=== PATIENT | male | born 1985 | race Caucasian/White ===

== ENCOUNTER → 2018-11-20 16:04 | Outpatient (CLI) | payer BC, SELFPAY | PROVIDERS: PCP Internal Medicine; Visit Provider Internal Medicine | DX: R00.2 Palpitations (principal) | CPT/HCPCS: 93005 ==

== ENCOUNTER → 2019-10-08 14:45 | Outpatient (CLI) | payer BC, SELFPAY ==
--- NOTE | 2019-10-08 15:01 | XR_ITS ---
PROCEDURE: XR CHEST 2V CLINICAL HISTORY: CHEST PAIN, PALPATATIONS COMPARISON: No exams were available for comparison FINDINGS: The cardiomediastinal silhouette and pulmonary vascularity are within normal limits. The lungs are clear without infiltrates, suspicious nodules, or pleural effusions. Calcified granuloma right upper lobe IMPRESSION: No acute findings. Dictated by: Prince Luke MD 10/08/2019 15:31 Electronically signed by Prince Luke MD in [place] 10/08/2019 15:31
[2019-10-08 15:23] LABS: Troponin I < 0.02 ng/ml (0.00-0.06)
--- NOTE | 2019-10-08 15:34 | ECG_ITS ---
APPROVED REPORT Exam: Resting ECG HR:101 bpm ECG Measurements Heart Rate 101 AXES MA 136 P 61 QRSd 88 QRS 53 QT 324 T 33 QTc 420 <Conclusion> Sinus tachycardia Otherwise WNL Electronically signed by : Rocael Rodarte, 10/08/2019 17:04:13
== END ==
PROVIDERS: Visit Provider Internal Medicine
DX: R07.9 Chest pain, unspecified (principal); R00.2 Palpitations
CPT/HCPCS: 36415; 71046; 84484; 93005

== ENCOUNTER → 2021-02-13 12:30 | Outpatient (CLI) | payer BC, SELFPAY ==
--- NOTE | 2021-02-13 | CA_ITS ---
APPROVED REPORT Left Lower Extremity Venous Study for DVT. 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 The pain has progressively gotten worse with a vein bulging on the lateral aspect of calf. Risk Factors Hypertension Vein Imaging CFV (L): compressive, spontaneous, phasic, augmentation FEM (L): compressive, spontaneous, phasic, augmentation POP (L): compressive, spontaneous, phasic, augmentation PTV (L): Compressible GSV (L): compressive, spontaneous, phasic, augmentation SSV (L): Compressible Peroneals (L):Compressible GAS (L): Compressible Findings No evidence of DVT or superficial thrombophlebitis in the veins scanned of the left lower extremity. Conclusion No evidence of DVT or superficial thrombophlebitis in the veins scanned of the left lower extremity. Electronically signed by : Prince Luke MD 02/13/2021 17:52:40
== END ==
PROVIDERS: PCP Internal Medicine; Visit Provider Internal Medicine
DX: M79.605 Pain in left leg (principal); R60.0 Localized edema
CPT/HCPCS: 93971

== ENCOUNTER → 2022-07-16 06:25 | Outpatient (CLI) | payer BC, SELFPAY | PROVIDERS: PCP Family Medicine; Visit Provider Family Medicine | DX: J02.9 Acute pharyngitis, unspecified (principal) | CPT/HCPCS: 87070 ==

== ENCOUNTER 2022-08-01 09:35 | Emergency (ER) | payer BC, SELFPAY ==
--- NOTE | 2022-08-01 09:37 | EXP.UTC ---
Discharge Plan Disposition Patient Disposition: Home, Self-Care Condition: Good Prescriptions Prescriptions: New azithromycin [Zithromax] 250 mg tablet 250 mg PO UD DOSE PK Qty: 6 0RF Rx Instructions: Take two (2) tablets today, then one (1) tablet days #2 thru #5 benzonatate [benzonatate] 100 mg capsule 100 mg PO TIDP PRN (Reason: Cough) Qty: 30 0RF methylprednisolone 4 mg Tablets,Dose Pack 4 mg PO DIRECTED Qty: 21 0RF No Action lisinopril 20 mg tablet 20 mg PO DAILY trazodone 50 mg tablet 25 mg PO HS albuterol sulfate 90 mcg/actuation HFA aerosol inhaler inhalation epinephrine 0.3 mg/0.3 mL auto-injector 0.3 mg IM ONCE PRN Label Comments: INJECT 1 PEN IN THE MUSCLE ONE TIME DIRECTED doxycycline monohydrate [Monodox] 100 mg capsule 100 mg PO BID Qty: 20 0RF Referrals Follow up/Referrals: Rocael Rodarte MD [Primary Care Provider] - See instructions Activity Restrictions/Add. Instructions Additional Instructions/Restrictions: Drink plenty of fluids. Take tylenol or ibuprofen for pain or fever. Take the medications as directed. Follow up with your regular doctor. GO TO THE ER FOR ANY WORSENING SYMPTOMS Clinical Impressions Clinical Impression: Sinusitis, Bronchitis Instructions Patient Instructions: DI for Sinusitis Discharge ED Provider: Maynor Nicholson [facility] [place] General Stated complaint: fever, cough, congestion/runny nose Time Seen by Provider: 08/01/22 09:43 History of Present Illness Provider Complaint: He c/o sore throat, chills, sinus congestion, and runny nose for the past 2 days. He had similar symptoms around 3 weeks ago. He took doxycycline (prescribed by his pcp) and he did get better until 2 days ago. Related Data Home Medications Medication Instructions Recorded Confirmed albuterol sulfate 90 mcg/actuation g inhalation 07/16/22 07/16/22 aerosol inhaler epinephrine 0.3 mg/0.3 mL 0.3 mg IM ONCE PRN 07/16/22 07/16/22 injection, auto-injector lisinopril 20 mg tablet 20 mg PO DAILY HTN 07/16/22 07/16/22 trazodone 50 mg tablet 25 mg PO HS insomnia 07/16/22 07/16/22 Previous Rx's Medication Instructions Recorded doxycycline monohydrate 100 mg 100 mg PO BID #20 caps 07/16/22 capsule (Monodox) azithromycin 250 mg tablet 250 mg PO UD DOSE PK #6 tabs 08/01/22 (Zithromax) benzonatate 100 mg capsule 100 mg PO TIDP PRN Cough #30 caps 08/01/22 methylprednisolone 4 mg tablets in 4 mg PO DIRECTED #21 tabs 08/01/22 a dose pack Allergies Allergy/AdvReac Type Severity Reaction Status Date / Time No Known Allergies Allergy Verified 08/01/22 09:50 [facility] Medical History Allergies Hypertension Surgical History Wrist fracture Family History Mother Hypertension Father Hypertension Social History Smoking Status: Never smoker alcohol intake: current substance use type: denies use current occupational status: employed Travel in the last 8 weeks: None ROS Obtained: Yes All systems reviewed & no additional complaints except as documented Constitutional Constitutional: Reports chills and Reports fever(s) Eyes Eyes: Denies eye discharge ENT Ears, Nose, Mouth, and Throat: Reports as per HPI Cardiovascular Cardiovascular: Denies chest pain Respiratory Respiratory: Denies chest congestion and Reports cough Gastrointestinal Gastrointestingal: Reports nausea; Denies abdominal pain, constipation, cramping, diarrhea or vomiting Musculoskeletal Musculoskeletal: Denies arthralgias Integumentary/Breasts Skin/Breast: Denies rash Neurologic Neurologic: Denies paresthesias Physical Exam General General appearance: alert and in no apparent distress Head Head exam: atraumatic,
[2022-08-01 09:48] VITALS: BP 167/94; PULSE 119; RESP 16; TEMP 36.9; O2SAT 98; BMI 29.9
[2022-08-01 10:02] LABS: UTC Strep Screen (Rapid) Negative (Negative)
[2022-08-01 10:23] VITALS: BP 167/94; PULSE 119; RESP 16; TEMP 36.9
[2022-08-01 14:31] LABS: Adenovirus,PCR Not Detected (NotDetected); Bordetella Pertussis Not Detected (NotDetected); Chlamydophila Pneumoniae, PCR Not Detected (NotDetected); Coronavirus 19, PCR Not Detected (NotDetected); Coronavirus 229E Not Detected (NotDetected); Coronavirus NL63 Not Detected (NotDetected); Coronavirus OC43 Not Detected (NotDetected); Coronovirus HKU1,PCR Not Detected (NotDetected); Human Metapneumovirus Not Detected (NotDetected); Influenza A, PCR Not Detected (NotDetected); Influenza AH1, 2009 Not Detected (NotDetected); Influenza AH1, PCR Not Detected (NotDetected); Influenza AH3,PCR Not Detected (NotDetected); Influenza B, PCR Not Detected (NotDetected); Mycoplasma Pneumoniae, PCR Not Detected (NotDetected); Parainfluenza 1, PCR Not Detected (NotDetected); Parainfluenza 2, PCR Not Detected (NotDetected); Parainfluenza 3, PCR Not Detected (NotDetected); Parainfluenza 4, PCR Not Detected (NotDetected); Respiratory Syncytial Virus Not Detected (NotDetected); Rhinovirus/Enterovirus Not Detected (NotDetected)
== END 2022-08-01 10:24 | disposition home or self-care (01) ==
PROVIDERS: Emergency Provider Nurse Practitioner Family; PCP Internal Medicine
DX: J40 Bronchitis, not specified as acute or chronic (principal); J32.9 Chronic sinusitis, unspecified
CPT/HCPCS: 87581; 87632; 87798; 87880; 99212; C9803; G0463; U0003; U0005

== ENCOUNTER 2024-07-28 22:59 | Emergency (ER) | payer BC, SELFPAY ==
--- NOTE | 2024-07-28 22:59 | ECG_ITS ---
APPROVED REPORT Exam: Resting ECG HR:172 bpm ECG Measurements Heart Rate 172 AXES QRSd 88 QRS 80 QT 247 T -38 QTc 340 Conclusion ATRIAL FIBRILLATION WITH RAPID VENTRICULAR RESPONSE NONSPECIFIC ST & T-WAVE ABNORMALITY CRITICAL TEST RESULT Electronically signed by : ALAN TADEO, 07/29/2024 07:13:38
[2024-07-28 23:00] VITALS: BP 79/50; PULSE 171; RESP 19; TEMP 36.9; O2SAT 100; BMI 27.1
[2024-07-28 23:03] VITALS: PULSE 170
[2024-07-28 23:04] VITALS: BP 127/95; PULSE 175; RESP 21; O2SAT 99
--- NOTE | 2024-07-28 23:05 | XR_ITS ---
PROCEDURE INFORMATION: Exam: XR Chest Exam date and time: 07/28/2024 11:04 PM Age: 39 years old Clinical indication: Other: Chest tightness TECHNIQUE: Imaging protocol: Radiologic exam of the chest. Views: 1 view. Total images: 1 COMPARISON: CR XR CHEST 2V 10/08/2019 3:19 PM FINDINGS: Lungs: Calcified right upper lobe granuloma. No consolidation. No pulmonary vascular congestion or edema. Pleural spaces: Unremarkable. No pleural effusion. No pneumothorax. Heart/Mediastinum: Calcified hilar lymph nodes. No cardiomegaly. No mediastinal widening or hilar enlargement. Bones/joints: Unremarkable. IMPRESSION: No radiographically acute cardiopulmonary process.
[2024-07-28 23:13] LABS: Basophils # 0.2 K/mm3 (0-0.2); Basophils % 1.5 % (0.1-2.0); Eosinophils # 0.1 K/mm3 (0.0-0.4); Eosinophils % 1.1 % (0.1-12.0); Hematocrit 48.5 % (42.0-52.0); Hemoglobin 17.2 g/dL (14.1-18.0); Lymphocytes % 38.7 % (10-50); Mean Corpuscular HGB Conc 35.5 g/dL (31.8-35.4); Mean Corpuscular Volume 90.1 fl (80-94); Mean Platelet Volume 7.5 fl (7.4-10.4); Monocytes % 9.4 % (1.7-9.3); Neutrophils # 5.2 K/mm3 (1.8-7.8); Neutrophils % 49.3 % (37.0-80.0); Platelet Count 255 K/mm3 (142-424); Red Blood Count 5.38 M/mm3 (4.60-6.20); Red Cell Distribution Width 13.2 % (11.5-17.5); White Blood Count 10.5 K/mm3 (4.8-10.8)
[2024-07-28] MEDS: LACTATED RINGERS 1000ML 1,000 ML 999 ML IV (23:13)
[2024-07-28 23:33] LABS: Activated Partial Thrombo Time 27.8 seconds (22.8-30.6); Alanine Aminotransferase 34 U/L (12-78); Albumin Level 4.2 g/dl (3.5-5.0); Albumin/Globulin Ratio 1.8 (1.1-1.8); Alkaline Phosphatase 51 U/L (38-126); Anion Gap 10.5 mEq/L (5-15); Aspartate Amino Transferase 36 U/L (17-59); Bilirubin,Total 0.5 mg/dl (0.2-1.3); Blood Urea Nitrogen 20 mg/dl (9-20); Calcium 9.3 mg/dl (8.4-10.2); Carbon Dioxide 28 mmol/L (22.0-30.0); Chloride 104 mmol/L (98-107); Creatinine Clearance Estimated 124 mL/min (50-200); Estimated Glomerular Filt Rate 83 ml/min (>60); GFR (African American) 101 ML/MIN (>60); Globulin 2.4 g/dL (1.3-3.2); Glucose 112 mg/dl (74-100); INR 0.98 (0.9-1.1); Magnesium 1.8 mg/dl (1.6-2.3); Potassium 3.5 mmoL/L (3.5-5.1); Sodium 139 mmol/L (136-145); Total Protein,Serum 6.6 g/dl (6.3-8.2)
[2024-07-28 23:35] VITALS: BP 132/89; PULSE 161; RESP 20; O2SAT 98
[2024-07-28 23:45] VITALS: BP 148/89; PULSE 159; RESP 14; O2SAT 100
[2024-07-28 23:46] LABS: HIV (1&2) Antibody Rapid NONREACTIVE (NONREACTIVE)
[2024-07-28 23:47] LABS: Troponin I < 0.01 ng/ml (0.00-0.034)
[2024-07-28 23:50] LABS: Free T4 (Free Thyroxine) 1.12 ng/dl (0.78-2.19)
[2024-07-28 23:51] VITALS: BP 135/87; PULSE 151; RESP 14; O2SAT 100
[2024-07-29] VITALS (13 sets, daily range): BP systolic 118–146; BP diastolic 76–95; PULSE 88–162; RESP 14–19; TEMP 36.6–36.8; O2SAT 97–100
[2024-07-29 00:04] LABS: Thyroid Stimulating Hormone 5.01 uIU/mL (0.465-4.68)
--- NOTE | 2024-07-29 00:07 | ECG_ITS ---
APPROVED REPORT Exam: Resting ECG HR:95 bpm ECG Measurements Heart Rate 95 AXES MT 155 P 53 QRSd 94 QRS 50 QT 286 T 38 QTc 338 Conclusion SINUS RHYTHM LOW QRS VOLTAGE IN PRECORDIAL LEADS [QRS DEFLECTION < 1.0 mV IN CHEST LEADS] BORDERLINE ECG Isolated T wave inversion lead III, no STEMI Electronically signed by : ALAN TADEO, 07/29/2024 07:15:57
[2024-07-29] MEDS: MIDAZOLAM 2MG/2ML VIAL 2 MG IV ×2 (00:18)
[2024-07-29] MEDS: FENTANYL 250MCG/5ML VIAL 50 MCG IV ×2 (00:18→00:19)
[2024-07-29] MEDS: APIXABAN 5MG TABLET 5 MG PO (00:40)
--- NOTE | 2024-07-29 01:07 | ED_ITS ---
Discharge Plan Disposition Patient Disposition: Home, Self-Care Condition: Good Prescriptions Prescriptions: New Eliquis 5 mg tablet 5 mg PO BID Qty: 60 0RF No Action lisinopril 20 mg tablet 20 mg PO DAILY trazodone 50 mg tablet 25 mg PO HS Referrals Follow up/Referrals: Provider,Lo, [Primary Care Provider] - See instructions Donta Henderson MD [Staff Physician] - See instructions (Paroxysmal A-fib, cardioverted in ER, now on Eliquis) Activity Restrictions/Add. Instructions Additional Instructions/Restrictions: You were evaluated in the ER and are appropriate for discharge at this time. Take the newly prescribed Eliquis as directed, do not skip doses, do not stop using this medication early unless directed so by cardiology. Follow-up with cardiology, contact their office for an appointment as soon as possible for further evaluation of of atrial fibrillation. Make an appoint with your primary care doctor for reevaluation as well to recheck thyroid levels. Return to the ER with new, worsening, or otherwise concerning symptoms. Clinical Impressions Clinical Impression: AF (paroxysmal atrial fibrillation), Heart palpitations Stand Alone Forms Stand Alone Forms: Work/School Release Instructions Patient Instructions: DI for Moderate Sedation Print Language Print Language: Occitan Discharge ED Provider: Jose Penaloza General Chief Complaint: Chest Pain Stated Complaint: palpitation, chest tightness Time Seen by Provider: 07/28/24 23:09 Mode of Arrival: Ambulatory Source of Information: Patient Limitations: No Limitations Description of Symptoms (Recalled from ER Triage Doc. by RN): 39 M presents from home with chest tightness and persistent palpitations that began earlier this afternoon around 4pm-5pm. Patient reports a history of some kind of tachycardia when he was younger. He reports taking Digoxin for awhile, but no longer takes this. History of Present Illness HPI narrative: 39-year-old male presents to the ER with complaints of palpitations and chest tightness beginning this afternoon at 4 PM. Patient states he was at his children's football game and came home and took a hot shower, when he got out of the shower he felt the palpitations start. He states he has had intermittent episodes like this since he was a teenager and had previously been told he had some sort of tachycardia and had been on digoxin for a while but has not been on this in years. Patient states he does not take any rate, rhythm, or blood thinning medications. He does take lisinopril and trazodone. Patient states usually breathing exercises stop these palpitation episodes, however they did not resolve today so he came to the ER. He states he does not have any radiation of pain and that his discomfort feels simply like pressure. No other associated symptoms. Related Data Home Medications ?Medication ?Instructions ?Recorded ?Confirmed lisinopril 20 mg tablet 20 mg PO DAILY 07/16/22 07/28/24 trazodone 50 mg tablet 25 mg PO HS 07/16/22 07/28/24 Previous Rx's ?Medication ?Instructions ?Recorded apixaban 5 mg tablet (Eliquis) 5 mg PO BID #60 tabs 07/29/24 Allergies Allergy/AdvReac Type Severity Reaction Status Date / Time No Known Allergies Allergy Verified 08/01/22 09:50 [facility] Disclaimer: The information contained in this section may have been updated after the patient was seen, as this information can be updated by other users. Medical History Allergies Hypertension Surgical History Wrist fracture Family History Mother Hypertension Father Hypertension Social History Smoking Status: Never smoker alcohol intake: current substance use type: denies use current occupational status: employed Travel in the last 8 weeks: None Other Medical History Have you received the Pneumonia Vaccine: No ROS Obtained: Yes Systems reviewed as appropriate & no additional complaints except as documented Positive ROS per HPI Physical Exam General General appearance: alert and in no apparent distress Head Head exam: atraumatic and normocephalic Eye Eye exam: Present PERRL and EOMI ENT ENT exam: Present mucous membranes moist Neck Neck exam: Present normal inspection and full ROM Chest Chest inspection: Present symmetric chest wall rise Respiratory Respiratory exam: Absent respiratory distress or stridor Cardiovascular Cardiovascular exam: Present tachycardia, irregular rhythm and other (2+ pulses throughout) Abdominal Exam Abdominal exam: Present soft; Absent distention or tenderness Extremities Exam Extremities exam: Present full ROM; Absent edema Neurological Exam Neurological exam: Present alert and oriented X3; Absent motor sensory deficit Psychiatric Psychiatric exam: Present normal affect and normal mood Skin Skin exam: Present warm and dry HEART Score HEART Score HEART Score assessment performed?: Yes History (anamnesis): Slightly suspicious ECG: Normal Age: <45 years Risk factors: 1-2 risk factors Troponin: </= normal limit HEART Score: 1 Procedures Risk/Benefits of Procedure(s) Were Explained: Yes Procedural Sedation Mallampati Score:: Class II Indication: other (Electrocardioversion) ASA Class: II Time of Last PO Intake: 22:00 Preparation: director and professor applied, pulse oximeter, capnometry used, supplemental O2 applied, suction/airway equipment at bedside and IV secured Fentanyl: IV Fentanyl dose (mcg): 50 (initial dose 50, additional 50mcg administered) Midazolam: IV Midazolam dose (mg): 5 Patient Tolerated Procedure: well and no complications Complications: none Additional Comments: Sedation start time: 5 Sedation stop time:7 Patient tolerated procedure well Patient was monitored until recovery Miscellaneous Procedure Procedure Performed: Electric cardioversion Indication: New onset atrial fibrillation with rapid ventricular response, less than 48 hours of symptoms Patient provided written consent for procedure after discussing risks and benefits Procedure details: ZOLL pads were placed in anterior, posterior application. Patient received moderate sedation with fentanyl, Versed, see sedation note for details. ZOLL was placed and synchronized cardioversion of mode, charged to 100 J. After 1 application of discharge, patient had immediate successful cardioversion to a normal sinus rhythm. Repeat ECG was performed. Patient tolerated procedure well. No complications. Critical Care Critical Care Time Critical Care Time: Yes Attestation: On 07/28/24, the high probability of a clinically significant, sudden or life threatening deterioration of the following system(s) required my full and direct attention, intervention and personal management. The time I documented below is in addition to time spent performing reported procedures but includes the following listed in this critical care notation. Total Time Total Critical Care Time: 35 Medical Decision Making Medical Records Medical records reviewed: Yes I reviewed the patient's medical records. MR Comment: Patient previously seen for bronchitis in the [facility] in July 2022 Justin Inquiry Pt receiving controlled substance: No Vital Signs Vital Signs: 07/28/24 23:00 07/28/24 23:03 07/28/24 23:04 Temperature 98.4 F Temperature Source Oral Pulse Rate 170 H 175 H Pulse Rate [Left] 171 H Respiratory Rate 19 21 Blood Pressure 127/95 H Blood Pressure [Right Arm] 79/50 L Blood Pressure Mean 101 Blood Pressure Mean [Right Arm] 59 Blood Pressure Source Blood Pressure Source [Right Arm] Automatic Cuff Blood Pressure Position Blood Pressure Position [Right Arm] Sitting 02 Sat by Pulse Oximetry 100 99 Oxygen Delivery Method Room Air Room Air Oxygen Flow Rate (LPM) 07/28/24 23:35 07/28/24 23:45 07/28/24 23:51 Temperature Temperature Source Pulse Rate 161 H 159 H 151 H Pulse Rate [Left] Respiratory Rate 20 14 14 Blood Pressure 132/89 148/89 H 135/87 Blood Pressure [Right Arm] Blood Pressure Mean 103 108 103 Blood Pressure Mean [Right Arm] Blood Pressure Source Blood Pressure Source [Right Arm] Blood Pressure Position Blood Pressure Position [Right Arm] 02 Sat by Pulse Oximetry 98 100 100 Oxygen Delivery Method Room Air Nasal Cannula Nasal Cannula Oxygen Flow Rate (LPM) 2 2 07/29/24 00:00 07/29/24 00:05 07/29/24 00:08 Temperature Temperature Source Pulse Rate 90 Pulse Rate [Left] 162 H 151 H Respiratory Rate 14 14 16 Blood Pressure 146/90 H Blood Pressure [Right Arm] 143/95 H 138/91 H Blood Pressure Mean 102 Blood Pressure Mean [Right Arm] 111 106 Blood Pressure Source Blood Pressure Source [Right Arm] Automatic Cuff Automatic Cuff Blood Pressure Position Blood Pressure Position [Right Arm] Supine Supine 02 Sat by Pulse Oximetry 100 100 98 Oxygen Delivery Method Nasal Cannula Nasal Cannula Nasal Cannula Oxygen Flow Rate (LPM) 2 2 2 07/29/24 00:10 07/29/24 00:15 07/29/24 00:20 Temperature 98 F Temperature Source Tympanic Pulse Rate 88 97 H Pulse Rate [Left] 161 H Respiratory Rate 17 15 19 Blood Pressure 136/91 H 143/88 H Blood Pressure [Right Arm] 124/80 Blood Pressure Mean 99 98 Blood Pressure Mean [Right Arm] 94 Blood Pressure Source Blood Pressure Source [Right Arm] Automatic Cuff Blood Pressure Position Blood Pressure Position [Right Arm] Supine 02 Sat by Pulse Oximetry 97 98 100 Oxygen Delivery Method Nasal Cannula Nasal Cannula Nasal Cannula Oxygen Flow Rate (LPM) 2 2 2 07/29/24 00:20 07/29/24 00:22 07/29/24 00:25 Temperature 98.1 F Temperature Source Tympanic Pulse Rate 97 H 92 H Pulse Rate [Left] 91 H Respiratory Rate 16 14 17 Blood Pressure 125/86 136/81 Blood Pressure [Right Arm] 124/76 Blood Pressure Mean 93 89 Blood Pressure Mean [Right Arm] 92 Blood Pressure Source Blood Pressure Source [Right Arm] Automatic Cuff Blood Pressure Position Blood Pressure Position [Right Arm] Supine 02 Sat by Pulse Oximetry 98 100 99 Oxygen Delivery Method Nasal Cannula Nasal Cannula Nasal Cannula Oxygen Flow Rate (LPM) 2 2 2 07/29/24 00:30 07/29/24 00:35 07/29/24 00:40 Temperature Temperature Source Pulse Rate 97 H 95 H 95 H Pulse Rate [Left] Respiratory Rate 16 16 16 Blood Pressure 141/81 H 137/80 131/87 Blood Pressure [Right Arm] Blood Pressure Mean 91 92 93 Blood Pressure Mean [Right Arm] Blood Pressure Source Blood Pressure Source [Right Arm] Blood Pressure Position Blood Pressure Position [Right Arm] 02 Sat by Pulse Oximetry 97 97 97 Oxygen Delivery Method Room Air Room Air Room Air Oxygen Flow Rate (LPM) 07/29/24 00:45 07/29/24 01:07 Temperature 98.3 F Temperature Source Oral Pulse Rate 93 H 95 H Pulse Rate [Left] Respiratory Rate 17 19 Blood Pressure 118/79 135/82 Blood Pressure [Right Arm] Blood Pressure Mean 87 Blood Pressure Mean [Right Arm] Blood Pressure Source Automatic Cuff Blood Pressure Source [Right Arm] Blood Pressure Position Sitting Blood Pressure Position [Right Arm] 02 Sat by Pulse Oximetry 97 Oxygen Delivery Method Room Air Room Air Oxygen Flow Rate (LPM) Lab Data Labs: Lab Results 07/28/24 23:00: WBC 10.5, RBC 5.38, Hgb 17.2, Hct 48.5, MCV 90.1, MCH 32.0 H, M CHC 35.5 H, RDW 13.2, Plt Count 255, MPV 7.5, Neut % (Auto) 49.3, Lymph % (Auto) 38.7, [place] % (Auto) 9.4 H, Eos % (Auto) 1.1, Baso % (Auto) 1.5, Neut # (Auto) 5.2, Lymph # (Auto) 4.0, [place] # (Auto) 1.0, Eos # (Auto) 0.1, Baso # (Auto) 0.2, PT 11.0, INR 0.98, APTT 27.8, Sodium 139, Potassium 3.5, Chloride 104, Carbon Dioxide 28, Anion Gap 10.5, BUN 20, Creatinine 1.00, Estimated Creat Clear 124, Estimated GFR 83, Est GFR ( Amer) 101, Glucose 112 H, Calcium 9.3, Magnesium 1.8, Total Bilirubin 0.5, AST 36, ALT 34, Alkaline Phosphatase 51, Troponin I < 0.01, Total Protein 6.6, Albumin 4.2, Globulin 2.4, Albumin/Globulin Ratio 1.8, TSH 5.01 H, Free T4 1.12, HIV 1&2 Antibody Rapid Nonreactive 07/28/24 23:00 07/28/24 23:00 Response Orders (Tests/Meds): ED MEDICATIONS Discontinued Medications Generic Name Dose Route Start Last Admin Trade Name Freq PRN Reason Stop Dose Admin Apixaban 5 mg 07/29/24 00:26 07/29/24 00:40 Apixaban 5mg Tablet PO 07/29/24 00:27 5 mg ONCE ONE Administration Fentanyl Citrate 50 mcg 07/28/24 23:30 07/29/24 00:18 Fentanyl 250mcg/5ml Vial IV 07/28/24 23:31 50 mcg ONCE ONE Administration Fentanyl Citrate 50 mcg 07/29/24 00:18 07/29/24 00:19 Fentanyl 250mcg/5ml Vial IV 07/29/24 00:19 50 mcg ONCE ONE Administration Lactated Ringer's 1,000 mls @ 999 mls/hr 07/28/24 23:10 07/28/24 23:13 Lactated Ringer's 1000 Ml Bag IV 07/29/24 00:10 999 mls/hr .Q1H1M ONE Administration Midazolam HCl 2 mg 07/28/24 23:30 07/29/24 00:18 Midazolam 2mg/2ml Vial IV 07/28/24 23:31 2 mg ONCE ONE Administration Midazolam HCl 2 mg 07/29/24 00:17 07/29/24 00:18 Midazolam 2mg/2ml Vial IV 07/29/24 00:18 2 mg ONCE ONE Administration Sodium Chloride 10 ml 07/28/24 23:05 Sodium Chloride 0.9% 10ml Flush Syringe IV 08/27/24 23:04 NEEDED PRN Maintain IV Site ORDERS Category Date Time Status XR chest portable Stat Exams 07/28/24 23:05 Completed Activated Partial Thrombo Time Stat Lab 07/28/24 23:00 Completed Complete Blood Count Auto Diff Stat Lab 07/28/24 23:00 Completed Comprehensive Metabolic Panel Stat Lab 07/28/24 23:00 Completed Free T4 (Free Thyroxine) Stat Lab 07/28/24 23:00 Completed HIV (1&2) Antibody Rapid Stat Lab 07/28/24 23:00 Completed Hep C Ab with Reflex to RNA Stat Lab 07/28/24 23:00 Received Magnesium Stat Lab 07/28/24 23:00 Completed Prothrombin Time INR Stat Lab 07/28/24 23:00 Completed TSH [Thyroid Stimulating Hormone] Stat Lab 07/28/24 23:00 Completed Troponin I Q3H Lab 07/28/24 23:00 Completed MDM Narrative Medical Decision Narrative: In summary, this 39-year-old male with a history of hypertension presents to the emergency department today with chest pressure and palpitations. On initial evaluation patient is tachycardic with irregular rhythm but otherwise stable with no peripheral edema, 2+ pulses throughout, warm and well-perfused. Differential diagnosis includes but is not limited to atrial fibrillation with rapid ventricular response, other arrhythmia, electrolyte abnormality, thyroid abnormality, I considered ACS though I have lower suspicion for this. Based on these concerns, I ordered serum labs, cardiac workup. ECG personally interpreted demonstrates atrial fibrillation with rapid ventricular response, normal axis, normal QTc, no STEMI. Patient received IV fluids initially for treatment. Labs personally reviewed demonstrate no leukocytosis or anemia, PT/INR, APTT normal, CMP nonactionable, initial troponin undetectably low at less than 0.01 reassuring against acute cardiac syndrome being the underlying etiology of patient's symptoms, TSH elevated at 5.01, however free T4 is normal.. XR personally interpreted demonstrates no acute intrathoracic abnormality, see radiology read for final interpretation. Since patient knows exactly when his symptoms started and is less than 48 hours from symptom onset and is of a relatively young age, I believe he is appropriate for electrocardioversion at this time. Patient was consented for procedure. Electrocardioversion was successful. ECG immediately after cardioversion demonstrated normal sinus rhythm, rate 95, normal axis, normal [place] and QTc, no STEMI. Patient recovered from the mildly sedating medications that he received during cardioversion. He tolerated oral intake. He remained in sinus rhythm and felt significantly better after the cardioversion than he did before. Patient received a dose of Eliquis for anticoagulation and this medication was prescribed to him for continued anticoagulation for the next 4 weeks. Patient requires outpatient follow-up with cardiology and was referred to Dr. Henderson for this purpose. Patient was given instructions on symptomatic management, follow up instructions, and return precautions for the emergency department. Patient indicated understanding and was discharged in stable condition.
[2024-07-31 05:15] LABS: HCV Ab Non Reactive (Non Reactive)
== END 2024-07-29 01:14 | disposition home or self-care (01) ==
PROVIDERS: Emergency Provider Emergency Medicine
DX: I48.0 Paroxysmal atrial fibrillation (principal); R00.2 Palpitations; R07.89 Other chest pain
CPT/HCPCS: 71045; 80050; 80053; 83735; 84439; 84443; 84484; 85025; 85610; 85730; 86803; 87389; 93005; 96360; 96361; 96374; 96375; 96376; 99291; J2250; J3010; J7120